=== PATIENT | female | born 1970 | race Caucasian/White ===

== ENCOUNTER 2019-09-20 08:29 | Outpatient (CLI) | payer OTHER, SELFPAY ==
--- NOTE | 2019-09-20 08:34 | MM_ITS ---
WS: [id number] SCREENING DIGITAL MAMMOGRAM WITH CAD HISTORY: SCREENING COMPARISON: 06/09/2018 and 08/11/2016 Bilateral CC and MLO views submitted. Computer aided detection analyzed. Breast composition: The breasts are almost entirely fatty. No suspicious masses, microcalcifications or architectural distortion. MM/[id number] IMPRESSION: BI-RADS: 1-Negative FOLLOW UP: 1 Year Follow-up
== END 2019-09-20 08:30 | disposition home or self-care (01) ==
LOC: RADSHAW 08:32
PROVIDERS: PCP Family Medicine; Visit Provider Nurse Practitioner Women's Health
DX: Z12.31 Encounter for screening mammogram for malignant neoplasm of breast (principal)
CPT/HCPCS: 77067

== ENCOUNTER → 2019-10-05 15:30 | Outpatient (BNVA) | payer OTHER, SELFPAY | PROVIDERS: PCP Family Medicine; Visit Provider Nurse Practitioner Women's Health | DX: Z01.419 Encounter for gynecological examination (general) (routine) without abnormal findings (principal) | CPT/HCPCS: 88175 ==

== ENCOUNTER → 2020-12-14 10:24 | Outpatient (BNVA) | payer OTHER, SELFPAY | PROVIDERS: PCP Family Medicine; Visit Provider Nurse Practitioner | DX: S82.431A Displaced oblique fracture of shaft of right fibula, initial encounter for closed fracture (principal); W10.9XXA Fall (on) (from) unspecified stairs and steps, initial encounter | CPT/HCPCS: 73610 ==

== ENCOUNTER → 2020-12-15 00:01 | Outpatient (BNVA) | payer OTHER, SELFPAY | PROVIDERS: PCP Family Medicine; Visit Provider Podiatrist Foot & Ankle Surgery | DX: S82.841A Displaced bimalleolar fracture of right lower leg, initial encounter for closed fracture (principal); Z20.822 Contact with and (suspected) exposure to COVID-19; X58.XXXA Exposure to other specified factors, initial encounter | CPT/HCPCS: 87635 ==

== ENCOUNTER 2020-12-19 05:32 | Day surgery (SDC) | payer OTHER, SELFPAY ==
[2020-12-18 13:38] VITALS: BMI 42.0
[2020-12-19] VITALS (8 sets, daily range): BP systolic 116–155; BP diastolic 67–97; PULSE 73–82; RESP 12–20; TEMP 36.6–37.3; O2SAT 94–99
--- NOTE | 2020-12-19 | SCC_ITS ---
Procedure Done: Open reduction internal fixation right bimalleolar equivalent ankle fracture. 13 seconds of fluoroscopic guidance, for a cumulative dose of 0.4 mGy, was provided to Dr. Damon by the radiology department. C-arm images of the RIGHT ankle were saved for the patient's permanent record. [facility] CENTERKalani
[2020-12-19] MEDS: sodium chloride 0.9% 1,000 ML 30 ML IV (06:03)
--- NOTE | 2020-12-19 06:36 | W.PM.OPSUD ---
Surgery/Procedure H&P Update DATE OF PROCEDURE: December 19, 2020 DATE H&P PERFORMED: 12/15/20 H&P UPDATE INFORMATION: I have reviewed H&P completed within last 30 days, I have examined patient prior to procedure, No changes to prior documentation and H&P is in [facility] EMR on date indicated PREOP DIAGNOSIS: Right ankle fracture PLANNED PROCEDURE: Operation Date: 12/19/20 07:00 Proposed Procedures p ORIF Ankle 77453 S82.841A(Right) - Jeremie Damon DPM
--- NOTE | 2020-12-19 06:37 | XR_ITS ---
WS: [id number] Exam: XR ankle RT min 3V* [id number] Date/Time of Exam: 12/19/2020 6:37 AM Reason For Exam: post op Comparison 12/14/2020. There is plate and screw fixation involving a fracture of the distal fibula. Alignment appears anatom ic for healing. There is also cable fixation of the lower tibia and fibula. The ankle mortise is equi distant. No other fractures are noted. Lateral surgical skin clips are noted. Soft tissue swelling. XR/XR ankle RT min 3V* [id number] IMPRESSION: 1. Satisfactory internal orthopedic fixation involving a fracture of the lower fibula. 2. Cable fixation of the tibia and fibula with judaism of the ankle mortise since prior study.
[2020-12-19] MEDS: midazolam 1 mg/mL INJ 2 mL 2 MG IVP (06:53)
--- NOTE | 2020-12-19 07:06 | ANES.PREANE2 ---
Pre-Anesthetic Assessment Pre-Anesthetic Assessment: Height/Weight: Height 1.63 m Weight 111.13 kg Temp Pulse Resp BP Pulse Ox 98 F 77 16 116/97 96 12/19/20 05:49 12/19/20 05:49 12/19/20 05:49 12/19/20 05:49 12/19/20 05:49 Preop Diagnosis: Right ankle fracture Proposed Procedure: Operation Date: 12/19/20 07:00 Proposed Procedures p ORIF Ankle 60109 S82.841A(Right) - Jeremie Damon DPM Was Beta Alonso taken within 24 hours: Yes Was Clonidine taken within 24 hours: N/A Last intake: Intake Last Liquid Date 12/18/20 Last Liquid Time 22:00 Last Solid Date 12/18/20 Last Solid Time 18:00 Social: Social History: No alcohol and No tobacco Exam: Pre-Anes Outpt Exam: alert, oriented x 3, clear to auscultation bilaterally and regular rate & rhythm Airway: Submandibular: WNL Cervical ROM: WNL MP: 2 Dentition: Full CV/HEM: CV/HEM: Arrythmia (SVT) Metabolic: Metabolic: Morbid obesity and Thyroid Neuropsych: Neuropsych: Anxiety Anesthetic Plan: ASA status: 2 Anesthesia: General and Regional (specify below) (Right popliteal blk) Risk of > 500 ml blood loss (7ml/kg in children): No Meds/Allergies Current Medications: Current Medications Generic Name Dose Route Start Last Admin Trade Name Freq PRN Reason Stop Dose Admin Sodium Chloride 1,000 mls @ 30 ml s/hr 12/19/20 05:45 12/19/20 06:03 Sodium Chloride 0.9% IV 12/20/20 05:44 30 mls/hr .Q24H KEON Administration PFSH Anesthesia PFSH: Medical History Anxiety Hypothyroidism No pertinent past medical history neghx: htn,dm,dvt/pe PCP: Alexandra Paroxysmal supraventricular tachycardia Surgical History History of cholecystectomy (~2008) Family History Mother Hypertension Father Hypertension Denies family history of Colon cancer Ovarian cancer Diabetes Heart disease Hyperlipidemia Breast cancer Family history of thyroid problem Uterine cancer Stroke Social History Smoking and tobacco status: never smoked Data Anesthesia Cardiac Studies: No Data to Display
--- NOTE | 2020-12-19 07:09 | ANES.PROC ---
Anesthesia Procedures Procedure/Date: 12/19/20 Nerve Block ^: Nerve Block 1: Main Anesthesia: general anesthesia Time Out Performed: Yes Consent: requested by attending/covering physician, from patient, risks and benefits reviewed and patient agrees to proceed Nerve block location: popliteal (right) Anesthesia monitors applied: oxygen Nerve block position: lateral (left) Anesthetic Used: ropivicaine 0.5% Amount of anesthesia used (mL): 30 Ultrasound used to: recognize landmarks Nerve Stimulator Used?: No Interscalene/Femoral BLK: 4 stimuplex 21 g needle used for position and inplane approach and visualize local anesthetic spread Injection: neg aspiration of heme Patient Tolerated Procedure: well Complications: none
[2020-12-19] MEDS: ondansetron 2 mg/ML SDV 2 mL 4 MG IVP (08:40)
[2020-12-19] MEDS: HYDROcodone-acetaminophen 10-325 mg Tablet 1 TAB PO (08:47)
--- NOTE | 2020-12-19 09:01 | P.OP_ITS ---
Operative Report Date of procedure: December 19, 2020 Pre-op Diagnosis: Right ankle fracture Post-op diagnosis: same Post-op Findings: None Procedure Done: Open reduction internal fixation right bimalleolar equivalent ankle fracture. Implants: Joss anatomic fibular plate, Cooks 3.5 mm locking screws and Cooks 2.7 mm locking screws, Arthrex tight rope XP, 2-0 Vicryl, 3-0 Vicryl, skin megan Pathology: none sent Surgeon: Jeremie Damon D.P.M. Personal Vehicle Advisor: Pamela Anesthesia: General Estimated blood loss: Less than 10 Tourniquet time: 38 minutes IV fluids: 0 Urine output: 0 Complications: None Condition: stable Disposition: PACU Brief History: Right ankle fracture with Kevon Valentino B and medial gutter widening approximately 7 mm indicating bimalleolar equivalent due to soft tissue injury. Recommend open reduction internal fixation plans for fibular plate and tight rope for syndesmotic repair. Patient is agreeable, no guarantees written, expressed or implied, risks include pain, bleeding, numbness, infection, posttraumatic arthritis, decreased range of motion, painful range of motion, hardware rotation and hardware failure need for further surgical intervention. Also risk for DVT, PE, heart attack, stroke and . Informed consent signed. Patient n.p.o. since midnight. Procedure: Under mild sedation the patient was brought to the operating room and placed on the operating table in supine position. A timeout was performed. Anesthesia was then administered by the anesthesia service. Local anesthesia injected by myself 10 cc of 0.5% Marcaine plain and a saphenous nerve block. Right popliteal block performed per anesthesia preoperatively. Well-padded pneumatic tourniquet applied to high calf right lower extremity. Right lower extremity was scrubbed, prepped and draped utilizing normal aseptic technique. Right foot was wrapped with an Esmarch bandage and the tourniquet inflated to 250 mmHg. Attention was directed to the right lateral ankle where a linear longitudinal incision was made with a #15 blade directly over the distal fibula utilizing blunt and sharp technique dissection was carried down to the periosteum and fracture utilizing caution to avoid neurovascular tendinous structures. All bleeders were ligated and cauterized as necessary. Fracture was distracted and curetted of hematoma this was flushed with saline reduced and fixated utilizing an anatomical fibular plate 2.7 millimeter screws locking distally and 3.5 millimeter screws proximally. This was fixated utilizing standard AO technique with excellent bony apposition and compression noted at the fracture site with anatomical reduction of the distal fibula there is still medial clear space intraoperative fluoroscopy confirmed anatomic alignment with congruent ankle mortise. This was on all 3 views. Incision was flushed with saline solution and closed in a layered fashion widening and medial gutter widening necessitating a syndesmotic repair. This was performed utilizing a Arthrex tight rope XP suture button with reduction noted once securing the suture button. Incision was flushed with saline solution and closed in a layered fashion with 2-0 Vicryl at periosteum, 3-0 Vicryl subcutaneous tissue and skin megan with dressing consisting of Adaptic, sterile 4 x 4's, sterile cast padding and 4 inch Miko wrap followed by cam boot. Tourniquet was deflated and a prompt hyperemic response was noted to the distal digits of the right foot. Patient tolerated procedure and anesthesia well and was transferred to the PACU with vital signs stable vascular status intact. Following a period of postoperative monitoring she will be discharged home is to remain nonweightbearing with follow-up next week in clinic.
[2020-12-19] MEDS: HYDROmorphone 1 mg/mL INJ 1 mL IVP (09:04)
--- NOTE | 2020-12-19 10:00 | SUR.PHASEII ---
0915 iv pain rx effective and pain down to 3
--- NOTE | 2020-12-19 12:31 | ANE.PACU2 ---
Inpatient post-anesthesia follow up: Airway intact: Yes Vital signs: Temperature 98 F Pulse Rate 73 Respiratory Rate 16 Blood Pressure 137/67 Pulse Oximetry 95 Oxygen Delivery Me thod Room Air Oxygen Flow Rate Fraction of Inspir ed Oxygen Hydration adequate: Yes Nausea and vomiting: No Pain level: 4 Mental status: Baseline
== END 2020-12-19 09:50 | disposition home or self-care (01) ==
PROVIDERS: PCP Family Medicine; Visit Provider Podiatrist Foot & Ankle Surgery
PROC: (CPT 27814; principal; 2020-12-19 07:00)
DX: S82.841A Displaced bimalleolar fracture of right lower leg, initial encounter for closed fracture (principal); W10.9XXA Fall (on) (from) unspecified stairs and steps, initial encounter; E03.9 Hypothyroidism, unspecified; I47.1 Supraventricular tachycardia; E66.01 Morbid (severe) obesity due to excess calories; Z68.41 Body mass index [BMI] 40.0-44.9, adult
CPT/HCPCS: 27814; 64450; 73610; 76000; 76942; 96365; 96374; C1713; J0690; J1100; J1170; J1885; J2250; J2405; J2704; J2795; J3010; J3490; J7030

== ENCOUNTER → 2021-01-01 15:05 | Outpatient (BNVA) | payer OTHER, SELFPAY | PROVIDERS: PCP Family Medicine; Visit Provider Podiatrist Foot & Ankle Surgery | DX: S82.841A Displaced bimalleolar fracture of right lower leg, initial encounter for closed fracture (principal); X58.XXXA Exposure to other specified factors, initial encounter; Z98.890 Other specified postprocedural states | CPT/HCPCS: 73610 ==

== ENCOUNTER → 2021-01-19 15:06 | Outpatient (BNVA) | payer OTHER, SELFPAY | PROVIDERS: PCP Family Medicine; Visit Provider Podiatrist Foot & Ankle Surgery | DX: Z98.890 Other specified postprocedural states (principal); S82.841A Displaced bimalleolar fracture of right lower leg, initial encounter for closed fracture; X58.XXXA Exposure to other specified factors, initial encounter | CPT/HCPCS: 73610 ==

== ENCOUNTER → 2021-02-18 09:01 | Outpatient (BNVA) | payer OTHER, SELFPAY | PROVIDERS: PCP Family Medicine; Visit Provider Podiatrist Foot & Ankle Surgery | DX: Z98.890 Other specified postprocedural states (principal); S82.841A Displaced bimalleolar fracture of right lower leg, initial encounter for closed fracture; X58.XXXA Exposure to other specified factors, initial encounter | CPT/HCPCS: 73610 ==

== ENCOUNTER 2021-02-18 11:36 | Outpatient (CLI) | payer OTHER, SELFPAY | END 2021-02-18 11:37 | disposition home or self-care (01) | LOC: SPT 11:55 | PROVIDERS: PCP Family Medicine; Visit Provider Podiatrist Foot & Ankle Surgery | DX: Z46.89 Encounter for fitting and adjustment of other specified devices (principal); S82.841D Displaced bimalleolar fracture of right lower leg, subsequent encounter for closed fracture with routine healing; X58.XXXD Exposure to other specified factors, subsequent encounter; Z98.890 Other specified postprocedural states | CPT/HCPCS: 97760; L1902 ==

== ENCOUNTER 2021-02-25 11:06 | Outpatient (CLI) | payer OTHER, SELFPAY ==
--- NOTE | 2021-02-25 11:15 | MM_ITS ---
WS: [id number] BILATERAL SCREENING DIGITAL MAMMOGRAM WITH CAD HISTORY: SCREENING COMPARISON: 09/20/2019, 06/09/2018 Bilateral CC and MLO views submitted. Computer aided detection analyzed. Breast composition: The breasts are almost entirely fatty. No suspicious masses, microcalcifications or architectural distortion. MM/[place] [id number] IMPRESSION: BI-RADS: 1-Negative FOLLOW UP: 1 Year Follow-up
== END 2021-02-25 11:07 | disposition home or self-care (01) ==
LOC: RADSHAW 11:11
PROVIDERS: PCP Family Medicine; Visit Provider Nurse Practitioner Women's Health
DX: Z12.31 Encounter for screening mammogram for malignant neoplasm of breast (principal)
CPT/HCPCS: 77067

== ENCOUNTER → 2021-03-18 14:40 | Outpatient (BNVA) | payer OTHER, SELFPAY | PROVIDERS: PCP Family Medicine; Visit Provider Podiatrist Foot & Ankle Surgery | DX: Z98.890 Other specified postprocedural states (principal); S82.841A Displaced bimalleolar fracture of right lower leg, initial encounter for closed fracture; X58.XXXA Exposure to other specified factors, initial encounter | CPT/HCPCS: 73610 ==

== ENCOUNTER → 2021-04-20 15:41 | Outpatient (BNVA) | payer OTHER, SELFPAY | PROVIDERS: PCP Family Medicine; Visit Provider Podiatrist Foot & Ankle Surgery | DX: Z47.89 Encounter for other orthopedic aftercare (principal); S82.841D Displaced bimalleolar fracture of right lower leg, subsequent encounter for closed fracture with routine healing; X58.XXXD Exposure to other specified factors, subsequent encounter | CPT/HCPCS: 73610 ==

== ENCOUNTER → 2021-11-05 09:13 | Outpatient (BNVA) | payer OTHER, SELFPAY | PROVIDERS: PCP Family Medicine; Visit Provider Family Medicine | DX: Z00.00 Encounter for general adult medical examination without abnormal findings (principal); E03.9 Hypothyroidism, unspecified | CPT/HCPCS: 80053; 80061; 84443 ==

== ENCOUNTER 2022-06-07 08:00 | Outpatient (CLI) | payer OTHER, SELFPAY ==
--- NOTE | 2022-06-07 08:07 | MM_ITS ---
WS: [id number] Bilateral screening 3D tomosynthesis digital mammogram, 06/07/2022 Clinical Data: SCREENING Comparison: 02/25/2021, 09/20/2019, 06/09/2018, 08/11/2016, 08/11/2015, 08/08/2014, 08/06/2013, 08/04/2012, 07/28/2011, 07/23/2010, 07/22/2009, 07/19/2008. Findings: The breast parenchymal pattern shows fat replacement. No spiculated masses or clustered calcification s are seen. There are no secondary signs of carcinoma. MM/[place] [id number] Impression: 1. Negative bilateral mammogram unchanged. 2. Recommend annual screening mammograms. BIRADS: 1-Negative FOLLOW UP: 1 Year Follow-up The CAD billing checker was used.
== END 2022-06-07 08:01 | disposition home or self-care (01) ==
PROVIDERS: PCP Family Medicine; Visit Provider Family Medicine
DX: Z12.31 Encounter for screening mammogram for malignant neoplasm of breast (principal)
CPT/HCPCS: 77063; 77067

== ENCOUNTER → 2022-11-09 08:44 | Outpatient (BNVA) | payer OTHER, SELFPAY | PROVIDERS: PCP Family Medicine; Visit Provider Family Medicine | DX: Z00.00 Encounter for general adult medical examination without abnormal findings (principal); E03.9 Hypothyroidism, unspecified; I47.1 Supraventricular tachycardia; Z13.6 Encounter for screening for cardiovascular disorders | CPT/HCPCS: 80053; 80061; 84443; 85025 ==

== ENCOUNTER → 2023-02-01 15:33 | Outpatient (BNVA) | payer OTHER, SELFPAY | PROVIDERS: PCP Family Medicine; Visit Provider Nurse Practitioner Family | DX: R68.89 Other general symptoms and signs (principal); J10.1 Influenza due to other identified influenza virus with other respiratory manifestations; U07.1 COVID-19; R03.0 Elevated blood-pressure reading, without diagnosis of hypertension | CPT/HCPCS: 87426; 87804 ==

== ENCOUNTER → 2023-07-01 13:42 | Outpatient (BNVA) | payer OTHER, SELFPAY | PROVIDERS: PCP Family Medicine; Visit Provider Nurse Practitioner Women's Health | DX: Z12.4 Encounter for screening for malignant neoplasm of cervix (principal); Z01.419 Encounter for gynecological examination (general) (routine) without abnormal findings; N95.1 Menopausal and female climacteric states | CPT/HCPCS: 87624 ==

== ENCOUNTER 2023-07-08 08:14 | Outpatient (CLI) | payer OTHER, SELFPAY ==
--- NOTE | 2023-07-08 08:17 | MM_ITS ---
WS: [id number] Bilateral screening 3D tomosynthesis digital mammogram, 07/08/2023 Clinical Data: Z12.31 - Encounter for screening mammogram for malignant ... Comparison: 06/07/2022, 02/25/2021, 09/20/2019, 06/09/2018, 08/11/2016, 08/11/2015, 08/08/2014, 08/04/2012, 07/28/2011, 07/23/2010, 07/22/2009, 07/19/2008. Findings: The breast parenchymal pattern shows fat replacement. No spiculated masses or clustered calcification s are seen. There are no secondary signs of carcinoma. MM/[place] [id number] Impression: 1. Negative bilateral mammogram unchanged. 2. Recommend annual screening mammograms. BIRADS: 1-Negative FOLLOW UP: 1 Year Follow-up The CAD freight checker was used.
== END 2023-07-08 08:15 | disposition home or self-care (01) ==
LOC: RAD 08:14
PROVIDERS: PCP Family Medicine; Visit Provider Nurse Practitioner Women's Health
DX: Z12.31 Encounter for screening mammogram for malignant neoplasm of breast (principal)
CPT/HCPCS: 77063; 77067

== ENCOUNTER → 2023-11-14 08:16 | Outpatient (BNVA) | payer OTHER, SELFPAY | PROVIDERS: PCP Family Medicine; Visit Provider Family Medicine | DX: E03.9 Hypothyroidism, unspecified (principal); Z13.6 Encounter for screening for cardiovascular disorders; I47.10 Supraventricular tachycardia, unspecified | CPT/HCPCS: 80053; 80061; 84443; 85025 ==

== ENCOUNTER 2024-07-10 08:33 | Outpatient (CLI) | payer OTHER, SELFPAY ==
--- NOTE | 2024-07-10 08:35 | MM_ITS ---
WS: [id number] BILATERAL 3D TOMOSYNTHESIS DIGITAL SCREENING MAMMOGRAM WITH CAD CLINICAL INFORMATION: SCREENING HISTORY: Screening mammogram. No current complaints. COMPARISON: 2023 TECHNIQUE: Bilateral CC and MLO views. FINDINGS: Fatty-replaced breasts bilaterally. No suspicious focal mass, asymmetry, calcifications, or architectural distortion. No evidence of malignancy. MM/MM scr BI tomosynthesis [id number] IMPRESSION: DENSITY: The breasts are almost entirely fatty. BI-RADS: 1 - Negative. FOLLOW UP: 1 Year Follow-up Recommend return to annual screening mammography.
== END 2024-07-10 08:34 | disposition home or self-care (01) ==
PROVIDERS: PCP Family Medicine; Visit Provider Nurse Practitioner Women's Health
DX: Z12.31 Encounter for screening mammogram for malignant neoplasm of breast (principal); R92.313 Mammographic fatty tissue density, bilateral breasts
CPT/HCPCS: 77063; 77067

== ENCOUNTER → 2024-07-18 09:53 | Outpatient (BNVA) | payer OTHER, SELFPAY | PROVIDERS: PCP Family Medicine; Visit Provider Nurse Practitioner Women's Health | DX: Z78.0 Asymptomatic menopausal state (principal); Z12.4 Encounter for screening for malignant neoplasm of cervix | CPT/HCPCS: 82306; 87624 ==

== ENCOUNTER → 2024-07-26 11:07 | Outpatient (BNVA) | payer OTHER, SELFPAY | PROVIDERS: PCP Family Medicine; Visit Provider Nurse Practitioner Women's Health | DX: N95.0 Postmenopausal bleeding (principal) | CPT/HCPCS: 76830 ==

== ENCOUNTER → 2024-11-23 08:06 | Outpatient (BNVA) | payer OTHER, SELFPAY | PROVIDERS: PCP Family Medicine; Visit Provider Family Medicine | DX: R03.0 Elevated blood-pressure reading, without diagnosis of hypertension (principal); I47.10 Supraventricular tachycardia, unspecified; E03.9 Hypothyroidism, unspecified; Z00.00 Encounter for general adult medical examination without abnormal findings | CPT/HCPCS: 80053; 80061; 82306; 82607; 84443; 85025 ==